=== PATIENT | female | born 1935 | race Caucasian/White ===

== ENCOUNTER 2017-10-14 09:01 | Outpatient (CLI) | payer MEDICARE, BC ==
--- NOTE | 2017-10-17 15:15 | DEXA Report ---
DEXA SCAN: 10/14/2017 HISTORY: Osteoporosis, currently on Fosamax. TECHNIQUE: Dual energy x-ray absorptiometry (DXA) was performed on a [employer] system. Regions measured are the AP spine, femoral neck, and, if needed, forearm. COMPARISON: None. In accordance with the International Society for Clinical Densitometry (ISCD) guidelines, data from previous exams may be reanalyzed using current recommendations and techniques. This is done to allow a more accurate basis for comparison with the current study. FINDINGS The data for the lumbar spine is as follows: REGION BMD (g/cm/cm) T-SCORE Z-SCORE L1 0.927 -1.7 0.0 L2 1.083 -1.0 0.7 L3 1.114 -0.7 1.0 L4 1.281 0.7 2.4 L1-L4 1.118 -0.5 1.2 L2-L4 1.172 -0.2 1.5 NOTE: All evaluable vertebrae are used for classification. The data for the hip is as follows: REGION BMD (g/cm/cm) T-SCORE Z-SCORE Neck 0.794 -1.8 0.3 TOTAL 0.837 -1.4 0.6 NOTE: The femoral neck or total proximal femur, whichever is lowest, is used for classification. IMPRESSION FEMORAL NECK BONE MINERAL DENSITY T-SCORE -1.8. WHO CLASSIFICATION BASED ON THE INTERNATIONAL REFERENCE STANDARD IS OSTEOPENIA. FRACTURE RISK IS INCREASED. RECOMMENDATION: Patients with diagnosis of osteoporosis or osteopenia should have regular bone mineral density assessment. For those eligible for Medicare, routine testing is allowed once every 2 years. Testing frequency can be increased for patients who have rapidly progressing disease or for those who are receiving medical therapy to restore bone mass. COMMENT World Health Organization (WHO) definitions for osteoporosis and osteopenia: NORMAL BMD: T-score at 1.0 or higher, fracture risk is low. OSTEOPENIA BMD: T-score between 1.0 and -2.5, fracture risk is increased. OSTEOPOROSIS BMD: T-score at 2.5 or lower, fracture risk high. National Osteoporosis Foundation recommends: 1. Obtain adequate dietary calcium (at least 1200 mg per day) and vitamin D (400 -800 international units per day). 2. Participate, as appropriate, in regular weightbearing and muscle- strengthening exercise. 3. Avoid tobacco use and reduce alcohol and caffeine intake. 4. For more detailed information see the website at www.NOF.org. TD: 10/14/2017 16:14 JENNY
== END 2017-10-14 09:02 | disposition home or self-care (01) ==
LOC: DI 09:01
PROVIDERS: ATTEND Family Medicine
DX: M81.0 Age-related osteoporosis without current pathological fracture (principal); M85.852 Other specified disorders of bone density and structure, left thigh
CPT/HCPCS: 77080

== ENCOUNTER 2018-12-17 10:11 | Outpatient (CLI) | payer MEDICARE, BC ==
--- NOTE | 2018-12-23 16:17 | Mammography Report ---
Reason: ROUTINE BREAST CANCER SCREENING Procedure Date: 12/17/2018 Accession Number: [id number] / [id number] Procedure: [facility] - Screening Mammo Dig Bilat CPT Code: FULL RESULT: EXAM: Screening Mammo Dig Bilat DATE: 12/17/2018 10:53 AM CLINICAL HISTORY: Screening encounter. TECHNIQUE: (B) - Bilateral CC and MLO views were obtained. COMPARISON: 12/19/2016 through 11/24/2013. PARENCHYMAL PATTERN: (A) - The breast(s) demonstrate(s) scattered fibroglandular densities. FINDINGS: There are typically benign vascular and coarse calcifications. There are no suspicious masses, calcifications, or areas of distortion. IMPRESSION: Benign findings. BI-RADS category 2. RECOMMENDATION: (ANNUAL) - Recommend routine annual screening mammography. BI-RADS CATEGORY: (2) - Benign Findings. STANDARD QUALIFYING STATEMENTS: 1. This examination was not reviewed with the aid of Computer-Aided Detection (CAD). 2. A negative or benign imaging report should not preclude biopsy if clinically suspicious findings are present. 3. Dense breasts may obscure an underlying neoplasm. 4. This examination was reviewed without the aid of 3D breast imaging (tomosynthesis).
== END 2018-12-17 10:12 | disposition home or self-care (01) ==
LOC: DI.N 10:11
PROVIDERS: ATTEND Family Medicine
DX: Z12.31 Encounter for screening mammogram for malignant neoplasm of breast (principal)
CPT/HCPCS: 77067

== ENCOUNTER 2020-04-04 13:31 | Outpatient (CLI) | payer MEDICARE, BC ==
--- NOTE | 2020-04-04 16:23 | DEXA Report ---
PROCEDURE: Dexa Spine and/or Hip INDICATIONS: MENOPAUSAL, SCREENING FOR OSTEOPOROSIS TECHNIQUE: Dual energy x-ray absorptiometry (DXA) was performed on a [employer] System. Regions measur ed are the AP Spine, femoral neck, and if needed forearm. COMPARISON: 10/14/2017. FINDINGS: Lumbar Spine: Bone Mineral Density 1.067 g/cm/cm,T score -0.9. Total left Hip: Bone Mineral Density 0.852 g/cm/cm,T score -1.2. Left Femoral Neck: Bone Mineral Density 0.792 g/cm/cm, T score -1.8. (T score greater or equal to -1.0: NORMAL) (T score from -1.1 to -2.4: OSTEOPENIA) (T score less than or equal to -2.5 to: OSTEOPOROSIS) Impression: Osteopenia. Patients with diagnosis of osteoporosis or osteopenia should have regular bone mineral density assess ment. For those eligible for Medicare, routine testing is allowed once every 2 years. Testing frequ ency can be increased for patients who have rapidly progressing disease or for those who are receivin g medical therapy to restore bone mass. Reviewed by: Jacob Denton MD on 04/04/2020 4:22 PM PST Approved by: Jacob Denton MD on 04/04/2020 4:22 PM PST Station ID: [id number]
== END 2020-04-04 13:32 | disposition home or self-care (01) ==
LOC: DI 13:31
PROVIDERS: ATTEND Family Medicine
DX: Z13.820 Encounter for screening for osteoporosis (principal); M85.89 Other specified disorders of bone density and structure, multiple sites
CPT/HCPCS: 77080

== ENCOUNTER 2020-06-16 11:29 | Outpatient (CLI) | payer MEDICARE, BC ==
--- NOTE | 2020-06-17 07:57 | Mammography Report ---
BILATERAL DIGITAL SCREENING MAMMOGRAM 3D/2D: 06/16/2020 CLINICAL: Routine screening. Comparison is made to exams dated: 12/17/2018 mammogram and 12/19/2016 mammogram - [facility]. There are scattered fibroglandular elements in both breasts. There are benign vascular calcifications in both breasts. No significant masses, calcifications, or other findings are seen in either breast. There has been no significant interval change. IMPRESSION: BENIGN There is no mammographic evidence of malignancy. A 1 year screening mammogram is recommended. This exam was interpreted at Station ID: [id number]. NOTE: For mammograms, a report in lay terms will be sent to the patient. Approximately 15% of breast malignancies will not be visualized mammographically. In the management of a palpable breast mass, a negative mammogram must not discourage biopsy of a clinically suspicious lesion. Electronically Signed By: Young Martinez M.D. [email or web address]/[email or web address]:06/16/2020 12:33:01 ACR BI-RADS Category 2: Benign Finding(s) 3342F PARENCHYMAL PATTERN: (A) - The breast(s) demonstrate(s) scattered fibroglandular densities. BI-RADS CATEGORY: (2) - 2 RECOMMENDATION: (ANNUAL) - Recommend routine annual screening mammography. [id number] 1 year screening LATERALITY: (B)
== END 2020-06-16 11:30 | disposition home or self-care (01) ==
LOC: DI.N 11:29
PROVIDERS: ATTEND Family Medicine
DX: Z12.31 Encounter for screening mammogram for malignant neoplasm of breast (principal)

== ENCOUNTER 2021-06-09 12:10 | Outpatient (CLI) | payer MEDICARE, BC ==
[2021-06-09 19:01] LABS: ALBUMIN 4.1 g/dL (3.2-5.5); BILIRUBIN,DIRECT 0.1 mg/dL (0.1-0.5); BILIRUBIN,TOTAL 0.7 mg/dL (0.2-1.0); TOTAL PROTEIN 7.1 g/dL (6.7-8.2)
== END 2021-06-09 12:11 | disposition home or self-care (01) ==
LOC: LAB.N 12:10
PROVIDERS: ATTEND Physician Assistant Medical
DX: B35.1 Tinea unguium (principal); Z79.899 Other long term (current) drug therapy
CPT/HCPCS: 36415; 80076

== ENCOUNTER 2021-06-14 16:12 | Outpatient (CLI) | payer MEDICARE, BC ==
[2021-06-14 18:55] LABS: CREATININE 0.8 mg/dL (0.4-1.0)
== END 2021-06-14 16:13 | disposition home or self-care (01) ==
LOC: LAB.N 16:12
PROVIDERS: ATTEND Physician Assistant Medical
DX: B35.1 Tinea unguium (principal); Z79.899 Other long term (current) drug therapy
CPT/HCPCS: 36415; 82565; 84520

== ENCOUNTER 2023-01-16 15:01 | Outpatient (CLI) | payer MEDICARE, BC ==
--- NOTE | 2023-01-16 20:14 | DEXA Report ---
PROCEDURE: Dexa Spine and/or Hip INDICATIONS: POST MENOPAUSAL TECHNIQUE: Dual energy x-ray absorptiometry (DEXA) was performed in the regions detailed below. COMPARISON: 04/04/2020 FINDINGS: Lumbar Spine: Bone Mineral Density 1.124 g/cm/cm,T score -0.5. Previously -0.9 Left Femoral Neck: Bone Mineral Density 0.868 g/cm/cm, T score -1.2. Previously -1.8 Left Hip: Bone Mineral Density 0.852 g/cm/cm,T score -1.2. Previously -1.2 (T score greater or equal to -1.0: NORMAL) (T score from -1.1 to -2.4: OSTEOPENIA) (T score less than or equal to -2.5 to: OSTEOPOROSIS) IMPRESSION: Osteopenia Patients with diagnosis of osteoporosis or osteopenia should have regular bone mineral density assess ment. For those eligible for Medicare, routine testing is allowed once every 2 years. Testing frequ ency can be increased for patients who have rapidly progressing disease or for those who are receivin g medical therapy to restore bone mass. Reviewed by: Tamir Beverly MD on 01/16/2023 7:12 PM LETY Approved by: Tamir Beverly MD on 01/16/2023 7:12 PM [id number] Station ID: [id number]
== END 2023-01-16 15:02 | disposition home or self-care (01) ==
LOC: DI 15:01
PROVIDERS: ATTEND Family Medicine
DX: N95.8 Other specified menopausal and perimenopausal disorders (principal); M85.80 Other specified disorders of bone density and structure, unspecified site